=== PATIENT | female | born 1995 | race African-American/Black ===

== ENCOUNTER 2017-08-12 17:00 | Observation (INO) | payer MEDICAID ==
[~2017-08-12] VITALS: Ht 154.9 cm; Wt 68.0 kg
[2017-08-12] MEDS ORDERED: TERBUTALINE SULFATE 1MG/ML VIAL SUBCUT PRN (18:00)
[2017-08-12] MEDS ORDERED: SODIUM CHLORIDE 0.9% 1,000 ML IV SCH (18:00)
== END 2017-08-12 18:35 | disposition left against medical advice (07) ==
LOC: L&D 17:00
PROVIDERS: ADMIT Obstetrics & Gynecology; ATTEND Obstetrics & Gynecology
DX: O26.893 Other specified pregnancy related conditions, third trimester (principal); R10.30 Lower abdominal pain, unspecified; R10.2 Pelvic and perineal pain; Z3A.31 31 weeks gestation of pregnancy
CPT/HCPCS: 99281; G0378; J7030